=== PATIENT | female | born 1960 | race Caucasian/White ===

== ENCOUNTER 2021-03-29 08:02 | Emergency (ER) | payer MEDICAID, MEDICARE ==
[2021-03-29 08:09] VITALS: BP 147/78
[2021-03-29] MEDS ORDERED: SODIUM CHLORIDE 0.9% 1,000 ML IV STA (08:11)
[2021-03-29] MEDS ORDERED: ONDANSETRON 4 MG/2 ML VIAL IVP STA (08:11)
--- NOTE | 2021-03-29 08:37 | ED Physician Documentation ---
History of Present Illness - Stated complaint Stated Complaint: NAUSEA/DIARRHEA - Chief complaint Chief Complaint: Abd Pain - History obtained from History obtained from: Patient - History of Present Illness Timing: Last night Pain level max: 2 Pain level now: 0 - Additonal information Additional information: 61-year-old female presents to the emergency department stating that she had 3 episodes of vomiting followed by diarrhea last night. She states that the symptoms have now resolved and she feels normal but she was told that she will need a note for work and a Covid test. No fevers. No chills. Nothing makes it better or worse. Still feels somewhat tired. Not currently having abdominal pain. Has had an appendectomy and cholecystectomy in the remote past. No recent antibiotics or travel. Review of Systems Ten Systems: 10 systems reviewed and negative Constitutional: denies: Fever, Chills Nose: denies: Rhinorrhea / runny nose, Congestion Cardiac: denies: Chest pain / pressure, Palpitations Respiratory: denies: Dyspnea, Cough, Wheezing GI: reports: Vomiting, Diarrhea. 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, Other Musculoskeletal: Osteoarthritis - Past Surgical History Past Surgical History: Yes General: Cholecystectomy, Appendectomy, Colonoscopy, EGD, Other Ortho: Amputation /FIELD PARTY MANAGER: Hysterectomy, Oophrectomy, Mastectomy HEENT: Other - Present Medications Home Medications: Ambulatory Orders Medication Instructions Recorded Confirmed Acetaminophen [Tylenol] 325 mg PO PRN 09/25/14 09/25/14 Famotidine [Pepcid] 20 mg PO DAILY 09/25/14 09/25/14 Sucralfate [Carafate] 1 tab PO QID 09/25/14 09/25/14 raNITIdine HCl [Zantac] 150 mg PO DAILY 09/25/14 09/25/14 - Allergies Allergies/Adverse Reactions: Allergies Allergy/AdvReac Type Severity Reaction Status Date / Time acetaminophen [From Vicodin] Allergy Nausea Verified 03/29/21 08:09 hydrocodone bitartrate * Allergy Nausea Verified 03/29/21 08:09 [From Vicodin] ketorolac tromethamine * Allergy Nausea Verified 03/29/21 08:09 [From Toradol] morphine Allergy Anaphylaxis Verified 03/29/21 08:09 Penicillins Allergy Hives Verified 03/29/21 08:09 propofol Allergy Headache Verified 03/29/21 08:09 codeine AdvReac Anxiety Verified 03/29/21 08:09 - Social History Does the pt smoke?: Yes Smoking Status: Current every day smoker Does the pt drink ETOH?: No Does the pt have substance abuse?: No - Immunizations Immunizations are current?: Yes PD ED PE NORMAL - Vitals Vital signs reviewed: Yes - General General: Alert and oriented X 3, No acute distress - HEENT HEENT: Moist mucous membranes - Neck Neck: Supple, no meningeal sign - Cardiac Cardiac: RRR, Strong equal pulses - Respiratory Respiratory: No respiratory distress, Clear bilaterally - Abdomen Abdomen: Soft, Non distended, Other (mild TTP LLQ, no peritoneal signs.) - Derm Derm: Warm and dry - Extremities Extremities: No edema - Neuro Neuro: Alert and oriented X 3 - Psych Psych: Normal mood, Normal affect Results - Vitals Vitals: Vital Signs - 24 hr 03/29/21 08:07 Temperature 36.2 C L Heart Rate 89 Respiratory 16 Rate Blood Pressure 147/78 H O2 Saturation 98 Oxygen O2 Source Room air PD MEDICAL DECISION MAKING - ED course Complexity details: considered differential, d/w patient ED course: Patient is a well-appearing, nontoxic 61-year-old female with what appears to be a viral gastroenteritis. She currently is asymptomatic, tolerating p.o. without difficulty. Declines any further blood work or IV hydration. Declines any medication for home. A Covid test was performed and a work note will be provided for today and tomorrow. Patient will return if her symptoms recur or worsen. Patient counseled regarding signs and symptoms for which I believe and urgent re-evaluation would be necessary. Patient with good understanding of and agreement to plan and is comfortable going home at this time This document was made in part using voice recognition software. While efforts are made to proofread this document, sound alike and grammatical errors may occur. Departure - Departure Disposition: 01 Home, Self Care Clinical Impression: Viral gastroenteritis Condition: Good Instructions: ED Gastroenteritis Viral Follow-Up: your,doctor as needed [Other] Comments: Drink plenty of fluids and rest. Return if you worsen. This should improve over the next 24 hours. Return if you are not improving as expected. You have a Covid test pending. You need to self quarantine until the result is done and negative. The results should be done in 24-48 hours. We will call with a positive result, the fastest way to get a negative result for confirmation though is to go to the hospital website at [email or web address], click on the my [facility] tab and sign up for the patient portal. If any of your friends and/or family need to be tested, they can call the hospital at [phone] for an appointment to have their Covid test. Forms: Activity restrictions
== END 2021-03-29 08:50 | disposition home or self-care (01) ==
LOC: ED 08:02
DX: A08.4 Viral intestinal infection, unspecified (principal); Z20.822 Contact with and (suspected) exposure to COVID-19; F17.200 Nicotine dependence, unspecified, uncomplicated
CPT/HCPCS: 99282; 99283; U0004; 80053; 83690; 85025

== ENCOUNTER 2022-06-03 06:29 | Emergency (ER) | payer MEDICARE ==
[2022-06-03 07:07] LABS: BASOPHILS # (AUTO) 0.1 10^3/uL (0.0-0.1); BASOPHILS % (AUTO) 0.6 %; EOSINOPHILS # (AUTO) 0.1 10^3/uL (0.0-0.7); EOSINOPHILS % (AUTO) 0.5 %; HCT - HEMATOCRIT 51.8 % (37.0-47.0); HGB - HEMOGLOBIN 17.4 g/dL (12.0-16.0); LYMPHOCYTES % (AUTO) 21.8 %; MEAN CORPUSCULAR HEMOGLOBIN 28.2 pg (27.0-31.0); MEAN CORPUSCULAR HGB CONC 33.6 g/dL (32.0-36.0); MEAN CORPUSCULAR VOLUME 84.1 fL (81.0-99.0); MEAN PLATELET VOLUME 9.9 fL (7.9-10.8); MONOCYTES # (AUTO) 0.7 10^3/uL (0.0-1.0); MONOCYTES % (AUTO) 5.3 %; NEUTROPHILS # (AUTO) 9.6 10^3/uL (1.5-6.6); NEUTROPHILS % (AUTO) 70.1 %; PLT - PLATELET COUNT 471 10^3/uL (130-450); RED BLOOD COUNT 6.16 10^6/uL (4.20-5.40); RED CELL DISTRIBUTION WIDTH 12.4 % (12.0-15.0); WHITE BLOOD COUNT 13.7 x10^3/uL (4.8-10.8)
[2022-06-03] MEDS ORDERED: ONDANSETRON 4 MG/2 ML VIAL IVP STA (07:14)
[2022-06-03] MEDS ORDERED: SODIUM CHLORIDE 0.9% 1,000 ML IV STA ×2 (07:14→08:23)
[2022-06-03 07:16] LABS: ALBUMIN 3.5 g/dL (3.2-5.5); ALBUMIN/GLOBULIN RATIO 0.7 (1.0-2.2); BILIRUBIN,TOTAL 0.5 mg/dL (0.2-1.0); CALCIUM 9.4 mg/dL (8.5-10.3); CREATININE 0.8 mg/dL (0.4-1.0); POTASSIUM 3.5 mmol/L (3.5-5.0); TOTAL PROTEIN 8.3 g/dL (6.7-8.2)
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
[2022-06-03 09:00] LABS: BILIRUBIN,URINE NEGATIVE (NEGATIVE); GLUCOSE, URINE (UA) NEGATIVE (NEGATIVE); KETONES,URINE (UA) NEGATIVE (NEGATIVE); LEUKOCYTE ESTERASE, URINE NEGATIVE (NEGATIVE); NITRITE,URINE NEGATIVE (NEGATIVE); OCCULT BLOOD,URINE NEGATIVE (NEGATIVE); PROTEIN,URINE NEGATIVE (NEGATIVE); UROBILINOGEN,URINE 0.2 (NORMAL) E.U./dL (NORMAL)
[2022-06-03 09:01] LABS: CLARITY,URINE CLEAR (CLEAR)
[2022-06-03 09:44] VITALS: BP 110/66
== END 2022-06-03 09:46 | disposition home or self-care (01) ==
LOC: ED 06:29
DX: K52.9 Noninfective gastroenteritis and colitis, unspecified (principal); F17.200 Nicotine dependence, unspecified, uncomplicated
CPT/HCPCS: 36415; 80053; 81001; 81003; 83690; 85025; 87086; 96361; 96374; 99283

== ENCOUNTER 2022-07-23 01:33 | Emergency (ER) | payer MEDICARE ==
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
[2022-07-23 06:18] VITALS: BP 147/90
--- NOTE | 2022-07-23 06:54 | CT Report ---
PROCEDURE: HEAD WO INDICATIONS: Headache TECHNIQUE: Noncontrast 4.5 mm thick angled axial sections acquired from the foramen magnum to the vertex. For r adiation dose reduction, the following was used: automated exposure control, adjustment of mA and/or kV according to patient size. COMPARISON: None. FINDINGS: Image quality: Excellent. CSF spaces: Basal cisterns are patent. No extra-axial fluid collections. Ventricles are normal in size and shape. Brain: No midline shift. No intracranial masses or hemorrhage. Grey-white matter interface is norm al. Skull and face: Calvarium and visualized facial bones are intact, without suspicious lesions. Sinuses: The right sphenoid sinus is opacified with inspissated mucus material. The mastoids are alejandra r. IMPRESSION: 1. No acute intracranial abnormality. 2. Chronic right sphenoid sinusitis. No significant discrepancy with the preliminary interpretation. Reviewed by: Carmine Carlson MD on 07/23/2022 6:53 AM [facility] Approved by: Carmine Carlson MD on 07/23/2022 6:53 AM [facility] Station ID: [id number]
== END 2022-07-23 06:18 | disposition home or self-care (01) ==
LOC: ED 01:33
DX: R51.9 Headache, unspecified (principal); F17.200 Nicotine dependence, unspecified, uncomplicated
CPT/HCPCS: 99283; 99284